=== PATIENT | female | born 2000 | race Caucasian/White ===

== ENCOUNTER 2022-12-20 05:46 | Emergency (ER) | payer MEDICAID ==
[~2022-12-20] VITALS: Ht 160 cm; Wt 69.4 kg
[2022-12-20 06:07] VITALS: BP 123/74
[2022-12-20] MEDS ORDERED: OFLO5DRO4 LEFT EAR (08:28)
== END 2022-12-20 08:55 | disposition home or self-care (01) ==
LOC: ER 05:46
DX: H60.92 Unspecified otitis externa, left ear (principal)
CPT/HCPCS: 99283

== ENCOUNTER 2022-12-25 09:10 | Emergency (ER) | payer MEDICAID ==
[~2022-12-25] VITALS: Ht 160 cm; Wt 69.0 kg
[~2022-12-25 09:10] MED LIST: OFLO5DRO4 LEFT EAR
[2022-12-25 09:30] VITALS: BP 126/68
[2022-12-25 10:18] LABS: BASOPHILS % 0.7 % (0.0-2.0); EOSINOPHILS % 0.6 % (0.0-5.0); HEMATOCRIT. 39.2 % (36.0-48.0); HEMOGLOBIN. 13.6 g/dL (12.0-16.0); LYMPHOCYTES % 17.2 % (20.0-50.0); MEAN CORPUSCULAR HEMOGLOBIN 29.3 pg (28.0-32.0); MEAN CORPUSCULAR VOLUME 84.8 fL (81.0-99.0); MEAN PLATELET VOLUME 9.3 fl (7.4-10.4); MONOCYTES % 12.9 % (2.0-8.0); NEUTROPHILS % 68.6 % (40.0-76.0); PLATELET 255 x1000/uL (130-400); RED BLOOD CELL COUNT 4.62 mill/uL (4.2-5.4); RED CELL DISTRIBUTION WIDTH 13.1 % (11.6-14.6)
[2022-12-25 10:19] LABS: CLARITY URINE CLOUDY (CLEAR); COLOR URINE YELLOW (YELLOW); KETONES URINE NEGATIVE (NEGATIVE); LEUKOCYTE ESTERASE URINE NEGATIVE (NEGATIVE); NITRITE URINE NEGATIVE (NEGATIVE); OCCULT BLOOD URINE 3+ (NEGATIVE); PH URINE 7.5 (4.5-8.0); PROTEIN URINE TRACE (NEGATIVE)
[2022-12-25 10:25] LABS: CHLORIDE 107 mEq/L (98-107)
[2022-12-25 11:14] LABS: HCG SCREEN POSITIVE
== END 2022-12-25 14:10 | disposition home or self-care (01) ==
LOC: ER 09:10
DX: O46.91 Antepartum hemorrhage, unspecified, first trimester (principal); Z3A.01 Less than 8 weeks gestation of pregnancy
CPT/HCPCS: 36415; 76801; 80053; 81003; 81025; 84702; 84703; 85025; 86850; 86900; 99284